=== PATIENT | female | born 1965 | race Caucasian/White ===

== ENCOUNTER 2018-09-05 11:41 | Inpatient (IN) | payer OTHER ==
[~2018-09-05] VITALS: Ht 177.8 cm; Wt 64.0 kg
[2019-02-21] MEDS ORDERED: NO MEDICATIONS (12:12)
[2019-04-04] VITALS (20 sets, daily range): BP systolic 91–131; BP diastolic 31–68; PULSE 45–79; RESP 14–25; Ht 177.8 cm; Wt 64.0 kg
[2019-04-04] MEDS ORDERED: LACTATED RINGER'S 1,000 ML IV SCH (10:00)
[2019-04-04] MEDS ORDERED: CEFAZOLIN 2 GM/50 ML (PMX) 50 ML IVPB SCH (10:00)
[2019-04-04] MEDS ORDERED: Metronidazole 500 MG in NS 100 ML IVPB SCH (10:00)
--- NOTE | 2019-04-04 12:03 | PREAC ---
Date/Time of Note Date/Time of Note DATE: 04/04/19 TIME: 12:02 Anesthesia Eval and Record Evaluation Time Pre-Procedure Interview DATE: 04/04/19 TIME: 12:02 Age 53 Sex female NPO: 8 hrs Preoperative diagnosis RECTAL INJURY POST COLOSTOMY Planned procedure LAP ASSISTED COLOSTOMY REVERSAL Past Medical History Past Medical History: Includes (ENDOMETRIAL CANCER) Surgery & Anesthesia Issues No known issue Meds Anticoagulation: No Beta Sophie within 24 hr: No Reason Beta Sophie not given: Pt. not on B-Sophie Discontinued Reported Medications [No Medications] No Conflict Check 02/21/19 Current Medications Lactated Ringer's 1,000 ml @ 25 mls/hr Q24H IV ; Start 04/04/19 at 10:00 Cefazolin Sodium/ Dextrose 50 ml @ 100 mls/hr ONCE IVPB ; Start 04/04/19 at 10:00; Stop 04/04/19 at 14:00 Metronidazole 100 ml @ 100 mls/hr ONCE IVPB ; Start 04/04/19 at 10:00; Stop 04/04/19 at 14:00 Meds reviewed: Yes Allergies Coded Allergies: No Known Allergy (Unverified , 04/04/19) Allergies Reviewed: Yes Labs/Studies Labs Reviewed: Reviewed by anesthesiologist test: N/A Studies: ECG (NL), CXR (NAPD) Pre-procedure Exam Airway: Adequate mouth opening, Adequate thyromental dist Mallampati: Mallampati II Teeth: Normal Lung: Normal Heart: Normal ASA Physical Status ASA physical status: 1 Emergency: None Planned Anesthetic General/MAC: ETT Neuraxial: Spinal Planned Pain Management Sub-arachniod narcotics, Parenteral pain med Pre-operative Attestations Prior to commencing anesthesia and surgery, the patient was re-evaluated, there was verification of: *The patient's identity *The results of appropriate recent lab work and preoperative vital signs *The above evaluation not changing prior to induction *Anesthetic plan, risk benefits, alternative and complications discussed with patient/family; questions answered; patient/family understands, accepts and wishes to proceed. Ronald Ng M.D. Apr 04, 2019 12:03
[2019-04-04] MEDS ORDERED: CEFAZOLIN 1 GM INJ ONE ×2 (12:09→13:13)
[2019-04-04] MEDS ORDERED: PROPOFOL 20 ML ONE (12:09)
[2019-04-04] MEDS ORDERED: FENTAnyl 50 MCG/ML VIAL ONE (12:09)
[2019-04-04] MEDS ORDERED: MIDAZOLAM 1 MG/ML 2 ML INJ ONE (12:09)
[2019-04-04] MEDS ORDERED: ROCURONIUM 50 MG INJ ONE (12:09)
[2019-04-04] MEDS ORDERED: GLYCOPYRROLATE 0.4 MG INJ ONE (12:09)
[2019-04-04] MEDS ORDERED: NEOSTIGMINE 3 MG/3 ML SYRINGE ONE (12:09)
[2019-04-04] MEDS ORDERED: ONDANSETRON 4 MG INJ ONE (12:10)
[2019-04-04] MEDS ORDERED: DEXAMETHASONE 4 MG/ML 5 ML INJ ONE (12:10)
[2019-04-04] MEDS ORDERED: morphine SULFATE/PF (10 MG/10 ML) INJ ONE ×2 (12:11→12:43)
--- NOTE | 2019-04-04 12:29 | HPN ---
Date/Time of Note Date/Time of Note DATE: 04/04/19 TIME: 12:28 Interval H&P Admission Note Pt. seen H&P reviewed: No system changes MARLEN GONZALES MD Apr 04, 2019 12:29
[2019-04-04] MEDS ORDERED: EPHEDrine 25 MG/5 ML SYG ONE (12:58)
[2019-04-04] MEDS ORDERED: FAMOTIDINE 20 MG INJ ONE (13:04)
[2019-04-04] MEDS ORDERED: metroNIDAZOLE 500 MG/NS (PMX) 100 ML IVPB ONE (13:12)
[2019-04-04] MEDS ORDERED: SUCCINYLCHOLINE CHLORIDE 100 MG/5 ML SYG IV ONE (13:12)
[2019-04-04] MEDS ORDERED: LIDOCAINE 2% (SDV) 5 ML INJ ONE (13:13)
[2019-04-04] MEDS ORDERED: OXYCODONE/ACETAMINOPHEN (5/325) TAB PO PRN (13:30)
[2019-04-04] MEDS ORDERED: MEPERIDINE 25 MG INJ IV PRN (13:30)
[2019-04-04] MEDS ORDERED: HYDROmorphONE 1 MG/5 ML IV SYRINGE IV PRN ×3 (13:30)
[2019-04-04] MEDS ORDERED: DIPHENHYDRAMINE 50 MG INJ IV PRN ×2 (13:30→14:30)
[2019-04-04] MEDS ORDERED: PROCHLORPERAZINE 10 MG INJ IV PRN (13:30)
[2019-04-04] MEDS ORDERED: ONDANSETRON 4 MG INJ IV PRN ×3 (13:30→15:00)
[2019-04-04] MEDS ORDERED: FENTAnyl 50 MCG/ML VIAL IV PRN ×2 (13:30)
[2019-04-04] MEDS ORDERED: SUGAMMADEX SODIUM 200 MG/2 ML VIAL IV ONE (14:25)
[2019-04-04] MEDS ORDERED: HYDROmorphONE 0.5 MG/0.5 ML SYG IV PRN ×2 (14:30)
[2019-04-04] MEDS ORDERED: KETOROLAC 30 MG INJ IV PRN (14:30)
[2019-04-04] MEDS ORDERED: NALBUPHINE HCL (10 MG/1 ML) INJ IV PRN (14:30)
[2019-04-04] MEDS ORDERED: NALOXONE (0.4 MG/ML) INJ IV PRN (14:30)
--- NOTE | 2019-04-04 14:48 | PAC ---
Date/Time of Note Date/Time of Note DATE: 04/04/19 TIME: 14:48 Post-Anesthesia Notes Post-Anesthesia Note Last documented vital signs Vital Signs Date Temp Pulse Resp B/P (MAP) Pulse Ox O2 O2 Flow FiO2 Time Delivery Rate 04/04/19 97.4 52 18 131/67 98 Room Air 11:50 (88) Activity: WNL Respiratory function: WNL Cardiovascular function: WNL Mental status: Baseline Pain reasonably controlled: Yes Hydration appropriate: Yes Nausea/Vomiting absent: Yes Comments BP: 118/54 HR: 75 RR: 15 T: 98 SaO2: 100% ROSALVA PETTIT MD Apr 04, 2019 14:48
[2019-04-04] MEDS: FENTAnyl 50 MCG/ML VIAL IV PRN ×4 (14:53→15:23)
[2019-04-04] MEDS ORDERED: ACETAMINOPHEN 325 MG TAB PO PRN (15:00)
[2019-04-04] MEDS: D5W-0.45 NACL + KCL 20 MEQ 1,000 ML IV SCH (16:06)
[2019-04-04] MEDS: metroNIDAZOLE 500 MG/NS (PMX) 100 ML IVPB SCH (20:33)
[2019-04-04] MEDS: FAMOTIDINE 20 MG TAB PO SCH (20:34)
[2019-04-04] MEDS: KETOROLAC 30 MG INJ IV SCH (20:34)
--- NOTE | 2019-04-04 21:23 | OPR ---
DATE OF OPERATION: 04/04/2019 PREOPERATIVE DIAGNOSIS: Colostomy. POSTOPERATIVE DIAGNOSIS: Colostomy. OPERATION PERFORMED: Open closure of colostomy with resection and anastomosis. SURGEON: Marlen Bernard MD ANESTHESIOLOGIST: Mecca Reynolds MD TYPE OF ANESTHESIA: General endotracheal anesthesia. INDICATIONS FOR PROCEDURE: Ms. Parks had an injury to her rectum 7 months ago and was given a div erting colostomy. She now presents for closure of colostomy after careful evaluation and assurance t hat her rectal injury had healed. Informed consent was obtained prior to the procedure. DESCRIPTION OF PROCEDURE: The patient was brought to the operating room and placed in supine positio n on the operating room table. Next, after successful administration of general anesthetic and place ment of an endotracheal tube, the patient was repositioned in low lithotomy position using Karthikeyan stir rups. After surgical timeout and administration of perioperative antibiotics, the patient's anterior abdomen and perineum were prepped and draped in the usual sterile fashion. Following this, an ellip tical incision was made around the left lower quadrant colostomy site at the mucocutaneous junction u sing a Bovie electrocautery. Careful sharp dissection was then performed to separate the colon and i ts mucosa from the subcutaneous tissues as well as the anterior and posterior rectus sheath. Once th is afferent limb of bowel was completely mobilized, we then found that the distal end of bowel was at the inferiormost edge of the colostomy site tacked to the posterior rectus sheath. This too was sophie ed from the surrounding tissues using sharp dissection. The evident staple line indicated the distal end of the large intestine. After mobilizing both the proximal and distal end of large bowel, we th en elected to create a functional end-to-end anastomosis by placing each end of bowel next to each ot her and making colotomies in each end of bowel. A single firing of a 75 mm REGINO stapler created an an astomosis between these 2 ends of bowel. We examined the staple anastomosis with an empty ring force ps and there was no evidence of active bleeding and viable mucosa was identified circumferentially. Next, the second firing of the REGINO stapler both closed the enterotomies made in the ends of bowel as well as resected the previous colostomy. This was sent off as surgical specimens. The colo-colo anastomosis was then reduced into the patient's abdomen and we proceed to close the abd ominal wall. This was done by using 2 rows of 0 Vicryl sutures in interrupted fashion of the anterio r and posterior rectus sheath. Copious irrigation was used between each layer of closure. The subcu taneous tissue was reapproximated using 2-0 Vicryl suture and the skin edges were reapproximated usin g a running 4-0 Monocryl stitch. A skin adhesive was applied to the skin after closure of the skin. Now, the procedure was complete and all sponge, needle, and instrument counts were correct. The tommy ent was awoken from anesthetic. She was then returned to the supine position and transferred to the recovery room after an uncomplicated extubation. The patient was received in the recovery room in st able condition. Dictated By: MARLEN DIAS/ADRIANO Conf#: [id number] DID#: [id number]
[2019-04-04] MEDS: CEFAZOLIN 2 GM/50 ML (PMX) 50 ML IVPB SCH (21:39)
[2019-04-05 02:35] VITALS: BP 81/47; PULSE 46; RESP 20
[2019-04-05] MEDS: KETOROLAC 30 MG INJ IV SCH ×4 (02:42→20:36)
[2019-04-05] MEDS: metroNIDAZOLE 500 MG/NS (PMX) 100 ML IVPB SCH ×2 (04:24→11:51)
[2019-04-05] MEDS: CEFAZOLIN 2 GM/50 ML (PMX) 50 ML IVPB SCH ×2 (05:40→13:13)
[2019-04-05] MEDS: FAMOTIDINE 20 MG TAB PO SCH ×2 (08:09→20:38)
[2019-04-05] MEDS: ENOXAPARIN 30 MG/0.3 ML SYG SC SCH (08:14)
[2019-04-05 08:32] VITALS: BP 82/46; PULSE 50; RESP 18
--- NOTE | 2019-04-05 09:04 | PN ---
Date/Time of Note Date/Time of Note DATE: 04/05/19 TIME: 09:01 Assessment/Plan Lines/Catheters IV Catheter Type (from Nrsg): Peripheral IV Rush in Place (from Nrsg): No Assessment/Plan Chief Complaint/Hosp Course Colostomy Assessment/Plan Ms. Parks is now POD#1 s/p colostomy closure. She is doing well. 1. Advance diet as tolerated 2. Encourage ambulation Subjective 24 Hr Interval Summary Constitutional: improved Feeding: advancing diet Pain Control: well controlled Exam/Review of Systems Vital Signs Vitals Vital Signs Date Temp Pulse Resp B/P (MAP) Pulse Ox O2 O2 Flow FiO2 Time Delivery Rate 04/05/19 97.7 50 18 82/46 (58) 98 08:32 04/04/19 Nasal 18:00 Cannula 04/04/19 2.0 16:00 Intake and Output 04/04/19 04/04/19 04/05/19 1515:00 23:00 07:00 IntakeIntake Total 24 ml 1590 ml 800 ml OutputOutput Total 105 ml BalanceBalance -81 ml 1590 ml 800 ml Exam Constitutional: alert, oriented Gastrointestinal: soft, surgical scars (LLQ incision is healing well without s/s of infection), tender (mid incisional TTP) Results Result Diagram: 04/05/19 0441 04/05/19 0441 Medications Medications Current Medications Hydromorphone HCl (Dilaudid) 0.4 mg Q2H PRN IV .PAIN 1-5; Start 04/04/19 at 14:30; Stop 04/05/19 at 12:44 Hydromorphone HCl (Dilaudid) 0.6 mg Q2H PRN IV .PAIN 6-10; Start 04/04/19 at 14:30; Stop 04/05/19 at 12:44 Diphenhydramine HCl (Benadryl) 25 mg Q4H PRN IV .PRURITUS; Start 04/04/19 at 1 4:30; Stop 04/05/19 at 12:44 Nalbuphine HCl (Nubain) 5 mg Q4H PRN IV .PRURITUS; Start 04/04/19 at 14:30; Stop 04/05/19 at 12:44 Ondansetron HCl (Zofran Inj) 4 mg Q6H PRN IV .NAUSEA/VOMITING; Start 04/04/19 at 14:30; Stop 04/05/19 at 12:44 Naloxone HCl (Narcan) 0.2 mg Q2M PRN IV .RESP RATE; Start 04/04/19 at 14:30; Stop 04/05/19 at 12:44 Miscellaneous Information (* Miscellaneous Pharmacy Order) DURAMORPH: 0.2 MG SPI... GIVEN NEURAXIAL XX ; Start 04/04/19 at 14:30; Stop 04/05/19 at 12:44 Cefazolin Sodium/ Dextrose 50 ml @ 100 mls/hr Q8H IVPB Last administered on 04/05/19at 05:40; Admin Dose 100 MLS/HR; Start 04/04/19 at 21:00; Stop 04/05/19 at 20:59 Metronidazole 100 ml @ 100 mls/hr Q8H IVPB Last administered on 04/05/19at 04:24; Admin Dose 100 MLS/HR; Start 04/04/19 at 20:00; Stop 04/05/19 at 19:59 Acetaminophen (Tylenol Tab) 1,000 mg Q6H PRN PO MILD PAIN(1-3)OR ELEVATED TEMP; Start 04/04/19 at 15:00 Ondansetron HCl (Zofran Inj) 4 mg Q6H PRN IV NAUSEA AND/OR VOMITING; Start 03/24 11/12 at 15:00 Famotidine (Pepcid) 20 mg BID PO Last administered on 04/05/19 08:09; Admin Dose 20 MG; Start 04/04/19 at 21:00 Potassium Chloride/Dextrose/ Sod Cl 1,000 ml @ 50 mls/hr Q20H IV Last administered on 04/04/19at 16:06; Admin Dose 50 MLS/HR; Start 04/04/19 at 16:00 Enoxaparin Sodium (Lovenox) 30 mg DAILY@07 SC Last administered on 04/05/19 08:14; Admin Dose 30 MG; Start 04/05/19 at 07:00 Ketorolac Tromethamine (Toradol) 30 mg Q6H IV Last administered on 04/05/19 08:13; Admin Dose 30 MG; Start 04/04/19 at 20:30; Stop 04/07/19 at 20:29 MARLEN GONZALES MD Apr 05, 2019 09:04
[2019-04-05] MEDS: D5W-0.45 NACL + KCL 20 MEQ 1,000 ML IV SCH ×2 (11:52→17:43)
[2019-04-05 16:45] VITALS: BP 97/52; PULSE 52; RESP 18
[2019-04-05] MEDS ORDERED: DIPHENHYDRAMINE 50 MG INJ IV PRN (19:00)
[2019-04-05 19:55] VITALS: BP 88/51; PULSE 52; RESP 18
[2019-04-06 00:05] VITALS: BP 102/55; PULSE 48; RESP 18
[2019-04-06] MEDS: KETOROLAC 30 MG INJ IV SCH ×2 (02:41→08:43)
[2019-04-06 07:37] VITALS: BP 120/58; PULSE 68; RESP 18
[2019-04-06] MEDS: ENOXAPARIN 30 MG/0.3 ML SYG SC SCH (08:22)
--- NOTE | 2019-04-06 08:27 | PN ---
Date/Time of Note Date/Time of Note DATE: 04/06/19 TIME: 08:24 Assessment/Plan Lines/Catheters IV Catheter Type (from Nrsg): Peripheral IV Rush in Place (from Nrsg): No Assessment/Plan Chief Complaint/Hosp Course Colostomy Assessment/Plan POD#2 s/p colostomy closure. She is doing well but is concerned about her loose BM. 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 1. Low residue diet, no lifting >5lbs for 6 weeks, okay to shower 2. Will discharge home today, follow up with Dr. Bernard in 1 week. Subjective 24 Hr Interval Summary Constitutional: ambulates, BM (loose BM today), flatus Feeding: advancing diet Pain Control: well controlled Exam/Review of Systems Vital Signs Vitals Vital Signs Date Temp Pulse Resp B/P (MAP) Pulse Ox O2 O2 Flow FiO2 Time Delivery Rate 04/06/19 97.8 48 18 102/55 96 00:05 (71) 04/04/19 Nasal 18:00 Cannula 04/04/19 2.0 16:00 Intake and Output 04/05/19 04/05/19 04/06/19 1515:00 23:00 07:00 IntakeIntake Total 350 ml 990 ml 400 ml BalanceBalance 350 ml 990 ml 400 ml Exam Constitutional: alert, oriented Gastrointestinal: soft, surgical scars (LLQ incision is healing well without s/s of infection), tender (mild, at incision) Results Result Diagram: 04/06/19 0437 04/06/19 0437 MARLEN BERNARD MD Apr 06, 2019 08:27
[2019-04-06] MEDS ORDERED: ACET325T33 PO (08:29)
[2019-04-06] MEDS ORDERED: HYDROCODONE/APAP (5/325) TAB PO PRN (08:30)
[2019-04-06] MEDS: FAMOTIDINE 20 MG TAB PO SCH (08:43)
== END 2019-04-06 10:55 | disposition home or self-care (01) | DRG 331 ==
LOC: REC 04-04 10:15 → MS1 04-04 15:58
PROVIDERS: ADMIT Colon & Rectal Surgery; ATTEND Colon & Rectal Surgery
PROC: 0DBE0ZZ Excision of Large Intestine, Open Approach (ICD-10-PCS; principal; 2019-04-04 12:00)
DX: Z43.3 Encounter for attention to colostomy (principal)
CPT/HCPCS: 80048; 85025; 87086; 88304; J0690; J1100; J1200; J1650; J1885; J2250; J2274; J2405; J2710; J3010; J3480; J7120

== ENCOUNTER 2019-02-21 11:09 | Day surgery (SDC) | payer OTHER ==
[~2019-02-21] VITALS: Ht 175.3 cm; Wt 64.7 kg
[2019-02-21 11:45] VITALS: Ht 175.3 cm; Wt 64.7 kg
[2019-02-21 11:56] VITALS: BP 123/57; PULSE 46; RESP 16
[2019-02-21] MEDS ORDERED: NO MEDICATIONS (12:12)
[2019-02-21] MEDS ORDERED: PROPOFOL 60 ML ONE (12:26)
[2019-02-21] MEDS ORDERED: LIDOCAINE 2% (SDV) 5 ML INJ ONE (12:26)
--- NOTE | 2019-02-21 12:34 | PREAC ---
Date/Time of Note Date/Time of Note DATE: 02/21/19 TIME: 12:32 Anesthesia Eval and Record Evaluation Time Pre-Procedure Interview DATE: 02/21/19 TIME: 12:32 Age 53 Sex female NPO: 8 hrs Preoperative diagnosis Constipation Planned procedure colonoscopy Past Medical History Past Medical History: Includes Cardio: Dyslipidemia Endo: Hypothyroid Surgery & Anesthesia Issues No known issue Meds Anticoagulation: No Beta Sophie within 24 hr: No Reason Beta Sophie not given: Pt. not on B-Sophie Reported Medications [No Medications] No Conflict Check 02/21/19 Meds reviewed: Yes Allergies Coded Allergies: No Known Allergy (Unverified , 02/21/19) Allergies Reviewed: Yes Labs/Studies Labs Reviewed: Reviewed by anesthesiologist test: Negative Studies: ECG Pre-procedure Exam Last vitals Vital Signs Date Temp Pulse Resp B/P (MAP) Pulse Ox O2 O2 Flow FiO2 Time Delivery Rate 02/21/19 97.9 46 16 123/57 100 Room Air 11:56 (79) Airway: Adequate mouth opening, Adequate thyromental dist Mallampati: Mallampati II Teeth: Normal Lung: Normal Heart: Normal ASA Physical Status ASA physical status: 2 Emergency: None Planned Anesthetic General/MAC: MAC Planned Pain Management Parenteral pain med Pre-operative Attestations Prior to commencing anesthesia and surgery, the patient was re-evaluated, there was verification of: *The patient's identity *The results of appropriate recent lab work and preoperative vital signs *The above evaluation not changing prior to induction *Anesthetic plan, risk benefits, alternative and complications discussed with patient/family; questions answered; patient/family understands, accepts and wishes to proceed. KAI ZAFAR MD February 21, 2019 12:34
--- NOTE | 2019-02-21 13:05 | PAC ---
Date/Time of Note Date/Time of Note DATE: 02/21/19 TIME: 13:04 Post-Anesthesia Notes Post-Anesthesia Note Last documented vital signs Vital Signs Date Temp Pulse Resp B/P (MAP) Pulse Ox O2 O2 Flow FiO2 Time Delivery Rate 02/21/19 97.9 46 16 123/57 100 Room Air 11:56 (79) Activity: WNL Respiratory function: WNL Cardiovascular function: WNL Mental status: Baseline Pain reasonably controlled: Yes Hydration appropriate: Yes Nausea/Vomiting absent: Yes Comments BP:105/56, P:68, Spo2:100%, T:98,8 KAI ZAFAR MD February 21, 2019 13:05
== END 2019-02-21 14:56 | disposition home or self-care (01) ==
LOC: GIL 11:09
PROVIDERS: ATTEND Colon & Rectal Surgery
DX: Z80.0 Family history of malignant neoplasm of digestive organs (principal); E03.9 Hypothyroidism, unspecified; K59.00 Constipation, unspecified
CPT/HCPCS: 45378; 88305; Z7610